=== PATIENT | male | born 1975 | race Caucasian/White ===

== ENCOUNTER 2018-06-17 16:06 | Emergency (ER) | payer OTHER ==
[~2018-06-17] VITALS: Ht 170.2 cm; Wt 76.2 kg
[2018-06-17 16:32] LABS: ABSOLUTE BASOPHILS 0.1 thou/uL (0.0-0.2); ABSOLUTE EOSINOPHILS 0.1 thou/uL (0.0-0.7); ABSOLUTE LYMPHOCYTES 2.3 thou/uL (0.8-5.3); ABSOLUTE MONOCYTES 1.1 thou/uL (0.0-1.2); ABSOLUTE NEUTROPHILS 8.2 thou/uL (1.6-8.1); BASOPHILS 0.6 %; EOSINOPHILS 0.9 %; HEMATOCRIT 52.9 % (42.0-52.0); LYMPHOCYTES 19.8 %; MCH 29.6 pg (26.0-34.0); MCV 87.1 fL (80.0-100.0); MONOCYTES 8.9 %; MPV 8.7 fl. (7.2-11.1); NUCLEATED RBCS 0 /100WBC; PLATELET COUNT* 254 thou/uL (150-400); POLYS 69.8 %; RBC 6.07 mil/uL (4.50-6.00); RDW-CV 14.3 % (10.5-14.5); WBC 11.8 thou/uL (4.0-11.0)
[2018-06-17 16:40] LABS: ANION GAP 10 mmol/L (7-16); BUN 18 mg/dL (7-18); CALCIUM 9.7 mg/dL (8.5-10.1); CHLORIDE 99 mmol/L (98-107); CO2 26 mmol/L (21-32); CREATININE 1.6 mg/dL (0.6-1.3); GLUCOSE 114 mg/dL (70-99); POTASSIUM 3.5 mmol/L (3.5-5.1); SODIUM 135 mmol/L (136-145)
[2018-06-17 16:47] LABS: ALBUMIN 4.2 g/dL (3.4-5.0); ALKALINE PHOSPHATASE 101 U/L (46-116); LIPASE 82 U/L (73-393); SGOT 13 U/L (15-37); SGPT 19 U/L (30-65); TOTAL BILIRUBIN 0.5 mg/dL (<0.1-1.0); TOTAL PROTEIN 8.7 g/dL (6.4-8.2); TROPONIN-I LEVEL <0.06 ng/mL (<0.06)
[2018-06-17 20:31] VITALS: BP 145/86
--- NOTE | 2018-06-18 11:10 | EKG ---
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 : 1975 Requested By: Denis Arroyo Order Number: [id number] MD: Kody Vargas Measurements Intervals [place] Rate: 68 P: 46 VA: 151 QRS: 54 QRSD: 96 T: 35 QT: 410 QTc: 437 Interpretive Statements Sinus rhythm ST elev, probable normal early repol pattern Baseline wander in lead(s) V2 No previous ECG available for comparison Electronically Signed On 06-18-2018 11:10:13 CDT by Kody Vargas [email or web address] <ELECTRONICALLY SIGNED> By: Nacho Vargas MD, [facility] 06/18/18 1110 09 09 Nacho Vargas MD, [facility] /EPI
--- NOTE | 2018-06-18 11:11 | EKG ---
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 Baseline wander in lead(s) V4 No previous ECG available for comparison Electronically Signed On 06-18-2018 11:11:10 CDT by Kody Vargas [email or web address] <ELECTRONICALLY SIGNED> By: Nacho Vargas MD, [facility] 06/18/18 1111 44 Nacho Vargas MD, [facility] /EPI
--- NOTE | 2018-06-18 11:13 | EKG ---
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
== END 2018-06-17 20:31 | disposition home or self-care (01) ==
LOC: M.ERS 16:06
PROVIDERS: Emergency Medicine Emergency Medical Services
DX: R55 Syncope and collapse (principal); R11.10 Vomiting, unspecified; F17.210 Nicotine dependence, cigarettes, uncomplicated

== ENCOUNTER 2018-08-09 08:17 | Emergency (ER) | payer OTHER ==
[~2018-08-09] VITALS: Ht 170.2 cm; Wt 81.7 kg
[2018-08-09] MEDS ORDERED: FLEXERIL PO (08:31)
[2018-08-09] MEDS ORDERED: ULTRAM 50MG TAB50 MG PO (08:31)
[2018-08-09 08:53] LABS: HEMATOCRIT 46.3 % (42.0-52.0); HEMOGLOBIN 15.7 gm/dL (14.0-18.0); MCH 29.3 pg (26.0-34.0); MCV 86.1 fL (80.0-100.0); MPV 8.4 fl. (7.2-11.1); NUCLEATED RBCS 0 /100WBC; PLATELET COUNT* 220 thou/uL (150-400); RBC 5.38 mil/uL (4.50-6.00); RDW-CV 13.1 % (10.5-14.5); WBC 14.3 thou/uL (4.0-11.0)
[2018-08-09 09:13] LABS: ANION GAP 11 mmol/L (7-16); BUN 11 mg/dL (7-18); CALCIUM 8.1 mg/dL (8.5-10.1); CHLORIDE 95 mmol/L (98-107); CO2 26 mmol/L (21-32); GLUCOSE 132 mg/dL (70-99); SODIUM 132 mmol/L (136-145)
[2018-08-09 09:20] LABS: ALKALINE PHOSPHATASE 91 U/L (46-116); LIPASE 83 U/L (73-393); SGOT 14 U/L (15-37); SGPT 14 U/L (30-65); TOTAL BILIRUBIN 0.5 mg/dL (<0.1-1.0); TOTAL PROTEIN 8.1 g/dL (6.4-8.2); TROPONIN-I LEVEL <0.06 ng/mL (<0.06)
[2018-08-09] MEDS ORDERED: LEVAQUIN 500 M500 MG PO (09:21)
[2018-08-09] MEDS ORDERED: VENTOLIN HFA 1818 GM INH (09:21)
[2018-08-09 09:45] LABS: ABSOLUTE EOSINOPHILS 0.1 thou/uL (0.0-0.7); ABSOLUTE LYMPHOCYTES 1.1 thou/uL (0.8-5.3); ANISOCYTOSIS 1+; PLATELET ESTIMATE ADEQUATE; POIKILOCYTOSIS 1+
[2018-08-09 09:53] VITALS: BP 129/88
--- NOTE | 2018-08-09 17:29 | EKG ---
[place] [address] ELECTROCARDIOGRAM REPORT Name: JENNIE HUDDLESTON JR Room: 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 : 1975 Requested By: Elias Aguero Order Number: [id number] MD: Braulio Chan Measurements Intervals [place] Rate: 91 P: 33 ID: 141 QRS: 108 QRSD: 89 T: 36 QT: 338 QTc: 416 Interpretive Statements Sinus rhythm Right axis deviation ST elev, probable normal early repol pattern Compared to ECG 06/17/2018 19:10:04 Right-axis deviation now present ST (T wave) deviation still present Electronically Signed On 08-09-2018 17:29:22 CDT by Braulio Chan [email or web address] <ELECTRONICALLY SIGNED> By: Braulio Chan MD, [facility] 08/09/18 1729 0835 0835 Braulio Chan MD, [facility] /EPI
== END 2018-08-09 09:54 | disposition home or self-care (01) ==
LOC: M.ERS 08:17
PROVIDERS: Family Medicine
DX: J18.9 Pneumonia, unspecified organism (principal); R19.7 Diarrhea, unspecified; F17.210 Nicotine dependence, cigarettes, uncomplicated